=== PATIENT | male | born 1980 | race Caucasian/White ===

== ENCOUNTER 2024-01-09 17:08 | Inpatient (IN) | payer OTHER ==
[2024-01-09 18:35] LABS: BASO % 0.2 % (0-2.0); EOS % 2.4 % (0-4.5); HEMOGLOBIN 11.3 GM/dL (11.7-16.9); LYMPH % 9.4 % (8-40); MCH 30.9 pg (25.7-33.7); MCHC 33.3 g/dl (32.0-35.9); MEAN CELL VOLUME 92.9 fl (80-96); MEAN PLT VOLUME 7.2 fl (7.5-11.1); MONO % 8.5 % (3.8-10.2); NEUT % 79.5 % (42.8-82.8); PLATELET COUNT 168 10^3/uL (134-434); RBC 3.66 M/mm3 (4.00-5.60); RDW 13.9 % (11.9-15.9); WHITE BLOOD COUNT 5.8 K/mm3 (4.0-10.0)
[2024-01-09] MEDS ORDERED: ASPIRIN 81 MG CHEWABLE TABLETS ONE (19:00)
[2024-01-09] MEDS ORDERED: ONDANSETRON 4 MG/2 ML VIAL ONE (19:00)
[2024-01-09 19:04] LABS: ACTIVATED PTT 34.4 SECONDS (25.2-36.5); INR 1.02 (0.83-1.09); PROTHROMBIN TIME (PATIENT) 11.8 SEC (9.7-13.0)
[2024-01-09] MEDS: ONDANSETRON 4 MG/2 ML VIAL IVPUSH ONE (19:06)
[2024-01-09] MEDS: ASPIRIN 81 MG CHEWABLE TABLETS PO ONE (19:06)
[2024-01-09 19:11] LABS: CALCIUM 8.8 mg/dL (8.5-10.1)
[2024-01-09 19:12] LABS: ALBUMIN 4.2 g/dl (3.4-5.0); BLOOD UREA NITROGEN 27.3 mg/dL (7-18); MAGNESIUM 2.2 mg/dL (1.8-2.4)
[2024-01-09 19:15] LABS: CREATININE 4.8 mg/dL (0.55-1.3); PHOSPHOROUS 3.6 mg/dL (2.5-4.9)
[2024-01-09 19:16] LABS: BILIRUBIN,TOTAL 0.6 mg/dL (0.2-1); TOT PROT 7.6 g/dl (6.4-8.2)
[2024-01-09 19:20] LABS: N-TERMINAL BNP 10461.3 pg/ml (5-125)
[2024-01-09] MEDS ORDERED: hydrALAZINE HCL 50 MG TABLET (FP) ONE (21:08)
[2024-01-09] MEDS: hydrALAZINE HCL 50 MG TABLET (FP) PO ONE (21:17)
[2024-01-09 21:37] LABS: TOTAL IRON BINDING CAPACITY 242 ug/dL (250-450)
[2024-01-09 21:38] LABS: IRON SERUM 50 ug/dL (50-175)
[2024-01-09] MEDS: INSULIN ASPART SLIDING SCALE (NOVOLOG) 1 VIAL SQ SCH (22:36)
[2024-01-10] MEDS ORDERED: HEPARIN NA (PORCINE) 5,000 UNITS/ML 1ML VIAL ONE (06:00)
[2024-01-10] MEDS: HEPARIN NA (PORCINE) 5,000 UNITS/ML 1ML VIAL SQ SCH ×2 (06:01→15:11)
[2024-01-10] MEDS: hydrALAZINE HCL 25 MG TABLET (FP) PO SCH (06:56)
[2024-01-10 09:20] LABS: BASO % 0.3 % (0-2.0); EOS % 4.1 % (0-4.5); LYMPH % 13.3 % (8-40); MCH 31.3 pg (25.7-33.7); MCHC 33.4 g/dl (32.0-35.9); MEAN CELL VOLUME 93.7 fl (80-96); MEAN PLT VOLUME 7.6 fl (7.5-11.1); MONO % 9.5 % (3.8-10.2); NEUT % 72.8 % (42.8-82.8); PLATELET COUNT 174 10^3/uL (134-434); RDW 14.1 % (11.9-15.9); WHITE BLOOD COUNT 5.2 K/mm3 (4.0-10.0)
[2024-01-10 09:39] LABS: POTASSIUM 4.8 mmol/L (3.5-5.1)
[2024-01-10 09:46] LABS: CHOLESTEROL 119 mg/dL (50-200)
[2024-01-10 09:47] LABS: LDL CHOLESTEROL (ONLY SJRH) 50 mg/dL (5-100)
[2024-01-10 09:50] LABS: BLOOD UREA NITROGEN 42.6 mg/dL (7-18); HDL CHOLESTEROL 61 mg/dL (40-60)
[2024-01-10 09:53] LABS: CREATININE 6.9 mg/dL (0.55-1.3); MAGNESIUM 2.2 mg/dL (1.8-2.4); PHOSPHOROUS 6.7 mg/dL (2.5-4.9)
[2024-01-10 09:54] LABS: CALCIUM 8.6 mg/dL (8.5-10.1); TOT PROT 6.3 g/dl (6.4-8.2)
[2024-01-10 09:55] LABS: BILIRUBIN,TOTAL 0.3 mg/dL (0.2-1)
[2024-01-10] MEDS ORDERED: CLOPIDOGREL BISULFATE 75 MG TABLET (FP) PO SCH (10:00)
[2024-01-10] MEDS ORDERED: ASPIRIN 81 MG CHEWABLE TABLETS PO SCH (10:00)
[2024-01-10 10:09] LABS: ALBUMIN 3.3 g/dl (3.4-5.0)
[2024-01-10] MEDS ORDERED: CARVEDILOL 12.5 MG TABLET (FP) ONE (10:22)
[2024-01-10] MEDS ORDERED: amLODIPine BESYLATE 5 MG TABLET (FP) ONE (10:22)
[2024-01-10] MEDS: amLODIPine BESYLATE 5 MG TABLET (FP) PO SCH ×2 (10:23→22:08)
[2024-01-10] MEDS: CARVEDILOL 12.5 MG TABLET (FP) PO SCH (10:23)
[2024-01-10] MEDS: ASPIRIN 81 MG CHEWABLE TABLETS PO SCH (10:23)
[2024-01-10] MEDS ORDERED: NITROFURANTOIN MACROCRYSTAL 50 MG CAPSULE (FP) ONE (12:33)
[2024-01-10] MEDS ORDERED: INSULIN (NOVOLOG) ASPART 100 UNITS/ML 10ML VIAL ONE (12:35)
[2024-01-10] MEDS ORDERED: hydrALAZINE HCL 25 MG TABLET (FP) PO SCH (14:00)
[2024-01-10] MEDS: hydrALAZINE HCL 50 MG TABLET (FP) PO SCH (15:11)
[2024-01-10 16:31] VITALS: BMI 24.5
[2024-01-10] MEDS: hydrALAZINE HCL 25 MG TABLET (FP) PO ONE (16:47)
[2024-01-10] MEDS: CARVEDILOL 12.5 MG TABLET (FP) PO ONE (16:48)
[2024-01-10] MEDS: INSULIN ASPART SLIDING SCALE (NOVOLOG) 1 VIAL SQ SCH (18:30)
[2024-01-10] MEDS ORDERED: ATORVASTATIN CA 80 MG TABLET (FP) PO SCH (22:00)
[2024-01-10] MEDS ORDERED: CARVEDILOL 12.5 MG TABLET (FP) PO SCH (22:00)
[2024-01-10] MEDS: CARVEDILOL 25 MG TABLET (FP) PO SCH (22:08)
[2024-01-10] MEDS: ATORVASTATIN CA 80 MG TABLET (FP) PO SCH (22:08)
[2024-01-11] MEDS: ISOSORBIDE DINITRATE 5 MG TABLET PO SCH (08:46)
[2024-01-11] MEDS: EPOETIN ALFA-EPBX 10,000 UNIT/ML VIAL IVPUSH ONE (09:22)
[2024-01-11 09:28] LABS: BASO % 0.5 % (0-2.0); EOS % 5.3 % (0-4.5); HEMATOCRIT 30.8 % (35.4-49); HEMOGLOBIN 10.3 GM/dL (11.7-16.9); MCH 31.1 pg (25.7-33.7); MCHC 33.3 g/dl (32.0-35.9); MEAN CELL VOLUME 93.4 fl (80-96); MEAN PLT VOLUME 7.8 fl (7.5-11.1); MONO % 11.6 % (3.8-10.2); NEUT % 61.6 % (42.8-82.8); PLATELET COUNT 174 10^3/uL (134-434); RDW 13.8 % (11.9-15.9); WHITE BLOOD COUNT 5.8 K/mm3 (4.0-10.0)
[2024-01-11 09:44] LABS: CHLORIDE 100 mmol/L (98-107); POTASSIUM 4.3 mmol/L (3.5-5.1); SODIUM 137 mmol/L (136-145)
[2024-01-11 09:48] LABS: ALBUMIN 3.6 g/dl (3.4-5.0); ANION GAP 11 mmol/L (4-13); BLOOD UREA NITROGEN 51.8 mg/dL (7-18); CALCIUM 8.6 mg/dL (8.5-10.1); CO2 26 mmol/L (21-32); GLUCOSE,RANDOM 130 mg/dL (74-106); MAGNESIUM 2.1 mg/dL (1.8-2.4)
[2024-01-11 09:50] LABS: SGPT/ALT 17 U/L (13-61)
[2024-01-11 09:51] LABS: PHOSPHOROUS 5.7 mg/dL (2.5-4.9); SGOT/AST 18 U/L (15-37)
[2024-01-11 09:52] LABS: BILIRUBIN,TOTAL 0.5 mg/dL (0.2-1); TOT PROT 6.8 g/dl (6.4-8.2)
[2024-01-11 09:53] LABS: ALK PHOS 58 U/L (45-117); CREATININE 7.7 mg/dL (0.55-1.3)
[2024-01-11] MEDS ORDERED: SODIUM CHLORIDE 250 ML IV PRN (10:00)
[2024-01-11] MEDS: ASPIRIN 81 MG CHEWABLE TABLETS PO SCH (13:07)
[2024-01-11] MEDS: LISINOPRIL 5 MG TABLET PO SCH (13:18)
[2024-01-12 09:30] LABS: BASO % 0.3 % (0-2.0); EOS % 4.3 % (0-4.5); LYMPH % 20.9 % (8-40); MCH 31.3 pg (25.7-33.7); MCHC 33.4 g/dl (32.0-35.9); MEAN CELL VOLUME 93.6 fl (80-96); MEAN PLT VOLUME 7.8 fl (7.5-11.1); MONO % 11.3 % (3.8-10.2); NEUT % 63.2 % (42.8-82.8); PLATELET COUNT 187 10^3/uL (134-434); RBC 3.52 M/mm3 (4.00-5.60); RDW 14.3 % (11.9-15.9); WHITE BLOOD COUNT 5.7 K/mm3 (4.0-10.0)
[2024-01-12 09:49] LABS: CHLORIDE 96 mmol/L (98-107); POTASSIUM 4.9 mmol/L (3.5-5.1); SODIUM 135 mmol/L (136-145)
[2024-01-12 09:56] LABS: ANION GAP 9 mmol/L (4-13); BLOOD UREA NITROGEN 41.9 mg/dL (7-18); CO2 30 mmol/L (21-32); GLUCOSE,RANDOM 100 mg/dL (74-106); MAGNESIUM 2.1 mg/dL (1.8-2.4)
[2024-01-12 09:59] LABS: PHOSPHOROUS 5.9 mg/dL (2.5-4.9)
[2024-01-12 10:00] LABS: CREATININE 7.8 mg/dL (0.55-1.3)
[2024-01-12] MEDS: FLUTICASONE PROP 0.05% 16 GM NASAL SPRAY NS SCH (15:57)
[2024-01-13 10:53] LABS: BASO % 0.5 % (0-2.0); EOS % 4.6 % (0-4.5); HEMOGLOBIN 9.7 GM/dL (11.7-16.9); LYMPH % 18.6 % (8-40); MCH 31.3 pg (25.7-33.7); MCHC 33.4 g/dl (32.0-35.9); MEAN CELL VOLUME 93.6 fl (80-96); MEAN PLT VOLUME 7.5 fl (7.5-11.1); MONO % 11.3 % (3.8-10.2); PLATELET COUNT 167 10^3/uL (134-434); RBC 3.09 M/mm3 (4.00-5.60); RDW 14.3 % (11.9-15.9)
[2024-01-13] MEDS ORDERED: ACETAMINOPHEN 1000 MG/100 ML BAG IVPB PRN (10:53)
[2024-01-13 10:54] LABS: INR 1.04 (0.83-1.09); PROTHROMBIN TIME (PATIENT) 12.1 SEC (9.7-13.0)
[2024-01-13 11:10] LABS: CHLORIDE 97 mmol/L (98-107); POTASSIUM 5.6 mmol/L (3.5-5.1); SODIUM 134 mmol/L (136-145)
[2024-01-13 11:15] LABS: ANION GAP 9 mmol/L (4-13); CO2 28 mmol/L (21-32); GLUCOSE,RANDOM 97 mg/dL (74-106)
[2024-01-13 11:16] LABS: CALCIUM 8.7 mg/dL (8.5-10.1)
[2024-01-13 11:17] LABS: MAGNESIUM 2.3 mg/dL (1.8-2.4)
[2024-01-13 11:19] LABS: PHOSPHOROUS 6.6 mg/dL (2.5-4.9)
[2024-01-13 11:24] LABS: CREATININE 10.3 mg/dL (0.55-1.3)
[2024-01-13] MEDS: DEXTROSE 50%-WATER 25 GM/50 ML DISP.SYRIN IVPUSH ONE (12:14)
[2024-01-13] MEDS: SODIUM ZIRCONIUM CYCLOSILICATE (LOKELMA) 5 GM PACKET PO ONE ×2 (12:15→18:23)
[2024-01-13] MEDS ORDERED: SODIUM CHLORIDE 250 ML IV PRN (14:12)
[2024-01-13 16:56] LABS: BF WBC & OTHER NUCLEATED CELLS 364 /mm3
[2024-01-14 09:04] LABS: HEMATOCRIT 32.5 % (35.4-49); HEMOGLOBIN 10.8 GM/dL (11.7-16.9); MCH 30.9 pg (25.7-33.7); MCHC 33.3 g/dl (32.0-35.9); MEAN CELL VOLUME 92.8 fl (80-96); MEAN PLT VOLUME 7.8 fl (7.5-11.1); PLATELET COUNT 179 10^3/uL (134-434); RDW 14.4 % (11.9-15.9); WHITE BLOOD COUNT 7.2 K/mm3 (4.0-10.0)
[2024-01-14 09:15] LABS: CHLORIDE 96 mmol/L (98-107); POTASSIUM 4.9 mmol/L (3.5-5.1); SODIUM 134 mmol/L (136-145)
[2024-01-14 09:20] LABS: CALCIUM 9.3 mg/dL (8.5-10.1)
[2024-01-14 09:21] LABS: ANION GAP 13 mmol/L (4-13); BLOOD UREA NITROGEN 81.8 mg/dL (7-18); CO2 25 mmol/L (21-32); GLUCOSE,RANDOM 100 mg/dL (74-106)
[2024-01-14 11:01] LABS: BODY FLUID MACROPHAGES 43 %
[2024-01-14 11:02] LABS: BODY FLUID MESOTHELIAL 38 %
[2024-01-14] MEDS: EPOETIN ALFA-EPBX 10,000 UNIT/ML VIAL IVPUSH ONE (15:37)
[2024-01-14 18:35] VITALS: BP 159/78; PULSE 76; RESP 16; TEMP 98.7
== END 2024-01-14 18:43 | disposition home or self-care (01) | DRG 186 ==
LOC: JER 17:08 → JERBED 20:58 → J5S 01-10 13:00 → OBSVTOIN 01-10 17:02
PROVIDERS: ADMIT Internal Medicine
PROC: 0W9B3ZZ Drainage of Left Pleural Cavity, Percutaneous Approach (ICD-10-PCS; principal; 2024-01-13)
PROC: 5A1D70Z Performance of Urinary Filtration, Intermittent, Less than 6 Hours Per Day (ICD-10-PCS; 2024-01-14)
DX: J90 Pleural effusion, not elsewhere classified (principal); N18.6 End stage renal disease; I13.2 Hypertensive heart and chronic kidney disease with heart failure and with stage 5 chronic kidney disease, or end stage renal disease; E78.5 Hyperlipidemia, unspecified; I50.9 Heart failure, unspecified; E11.22 Type 2 diabetes mellitus with diabetic chronic kidney disease; J44.9 Chronic obstructive pulmonary disease, unspecified; I16.0 Hypertensive urgency; I25.10 Atherosclerotic heart disease of native coronary artery without angina pectoris; N18.9 Chronic kidney disease, unspecified; D63.1 Anemia in chronic kidney disease; R07.9 Chest pain, unspecified; Z99.2 Dependence on renal dialysis; Z95.1 Presence of aortocoronary bypass graft; Z95.5 Presence of coronary angioplasty implant and graft
CPT/HCPCS: 0241U-QW; 36415; 71045-TC-FY; 71250-TC; 76942; 80048; 80053; 80061; 82150; 82465; 82607; 82728; 82945; 82962; 83036; 83540; 83550; 83615; 83690; 83735; 83880; 84100; 84157; 84443; 84478; 84484; 85025; 85027; 85045; 85610; 85730; 86704; 86803; 86850; 86900; 86901; 87070; 87075; 87102; 87116; 87205; 87206; 87210; 87340; 87517; 88108; 88305-TC; 93005; 93010; 93306-TC; 99285-25; G0378; J1644; Q5106